=== PATIENT | male | born 1970 | race Caucasian/White ===

== ENCOUNTER → 2017-07-30 | Outpatient (CLI) | payer OTHER ==
[~2017-07-30] MED LIST: CLC100 PO; MULT-506 PO; OXYC-57 PO; ZFRODT4 SL
--- NOTE | 2017-07-30 09:41 | DIAGNOSTIC IMAGING REPORT ---
TESTICULAR ULTRASOUND HISTORY: LARGE TESTES LEFT SIDE COMPARISON: Testicular ultrasound 06/20/2008. FINDINGS: Right testis: 4.6 x 3.6 x 2.4 cm. There are no intratesticular masses. Normal color flow. No hydrocele. A 2 mm epididymal head cyst. Left testis: 4.6 x 2.7 x 3.2 cm. There are no intratesticular masses. Normal color flow. No hydrocele. The epididymis is unremarkable. Left-sided varicocele. The varicosities are distended up to 6 mm. IMPRESSION: 1. Normal bilateral testes. 2. Left-sided varicocele. Electronically signed by: Maurizio Briones M.D. 07/30/2017 9:39 AM Dictated Date/Time: 07/30/2017 9:33 AM
== END | disposition home or self-care (01) ==
LOC: C.ULTR 08:47
PROVIDERS: ATTEND Family Medicine
DX: I86.1 Scrotal varices (principal)